=== PATIENT | female | born 1965 | race Caucasian/White ===

== ENCOUNTER 2016-08-12 00:36 | Emergency (ER) | payer OTHER ==
--- NOTE | 2016-08-15 11:58 | ER ---
ADMIT: 08/12/2016 RM/LOC: ER [facility] MR#: [id number] [facility] [address] [place] [id number] GARRY BORJAS [address] [phone] Emergency Room Report SEX: F AGE: 51 : 1965 DATE: 08/12/2016 HISTORY OF PRESENT ILLNESS: The patient is a 51-year-old female with past medical history of anxiety and seasonal allergy who came to the ER with chief complaint of bilateral pinkeye. The patient states she has been contact with grandchild who also has pinkeye. The patient denies any exudate or discharge from the eyes and for the last 2 to 3 days had pink eyes. The patient denies any trauma and denies using any contact lenses. The patient denies any foreign body, projectile, or penetration injury. PHYSICAL EXAMINATION: The patient had bilateral conjunctival injection. and there is very mild . Extraocular movement is normal. I did not see any discharge and islets, bilateral, I did not see any stye or other abnormalities. Extraocular movement is painless. Accommodation is normal and pupils are 3 mm reactive to light. The patient has congested nose too. With diagnoses of pinkeye, acute conjunctivitis viral versus allergic, the patient received naphazoline. The patient also has a history of anxiety and received a prescription for 5 Xanax to take at night after going home. The patient was discharged to home to be followed up by the primary doctor. At the moment, the patient has no headaches or visual changes, and in no distress. Chris Larsen MD/ yuliya JOB #: [id number] CC: Chris Larsen MD, Attending Physician Lawrence Falcon NP, Family Physician
== END 2016-08-12 01:30 | disposition home or self-care (01) ==
LOC: ER 00:36
DX: H10.33 Unspecified acute conjunctivitis, bilateral (principal); F17.200 Nicotine dependence, unspecified, uncomplicated; Z88.1 Allergy status to other antibiotic agents; Z88.8 Allergy status to other drugs, medicaments and biological substances